=== PATIENT | female | born 1940 | race Caucasian/White ===

== ENCOUNTER 2021-03-08 09:19 | Emergency (ER) | payer MEDICARE, SELFPAY ==
[2021-03-08] VITALS (9 sets, daily range): BP systolic 151–158; BP diastolic 83–97; PULSE 78–98; RESP 14–23; TEMP 36.1–36.3; O2SAT 84–96; BMI 16.0
--- NOTE | 2021-03-08 09:31 | NURSING ---
NO OLD EKGS
--- NOTE | 2021-03-08 10:00 | EKG12_ITS ---
Test Reason : SOB Blood Pressure : / mmHG Vent. Rate : 087 BPM Atrial Rate : 087 BPM P-R Int : 148 ms QRS Dur : 076 ms QT Int : 352 ms P-R-T Axes : 083 063 068 degrees QTc Int : 423 ms Normal sinus rhythm Normal ECG Confirmed by MADDISON SALAS, ARTUR ([id number]), copy editor BECKY BROWNE ([id number]) on 03/09/2021 1:16:49 PM Referred By: CATARINA Confirmed By:ARTUR WASHBURN MD
--- NOTE | 2021-03-08 10:00 | RAD_ITS ---
STUDY: X-RAY CHEST REASON FOR EXAM: Female, 80 years old. Cough TECHNIQUE: Single AP portable view of the chest. COMPARISON: None. FINDINGS: EKG electrodes are seen. There is hyperinflation of the lungs consistent with chronic obstructive lung disease (COPD). Patchy bibasilar infiltrates worse at the left lung base. Blunting of both costophrenic angles. Normal size heart. Normal mediastinum and rito. Normal visualized pulmonary arteries. There is atherosclerotic calcification of the aortic arch with tortuosity. There are diffuse degenerative changes of the visualized thoracic spine. Normal visualized ribs, clavicles, and shoulders. There is no demonstrated abnormality of the visualized soft tissue structures of the upper abdomen. RAD/Chest 1 View (Portable) IMPRESSION: Patchy bibasilar infiltrates more prominent at the left lung base. Electronically Signed: Amarjit Ken MD at 11:11 EST , Service support ,
--- NOTE | 2021-03-08 10:10 | ED.VIS.DYS ---
HPI History of Present Illness Chief Complaint: Shortness of Breath Informant: patient Narrative Narrative: Patient is an 80-year-old female with history of hypertension, COPD/emphysema and hyperlipidemia as well as recent COVID-19 infection. She is presenting with continued cough and shortness of breath. She states she is just tired of being sick. She does not wear home oxygen. Patient was 84% upon arrival on room air. Patient was diagnosed with COVID-19 on February 13. She states she had a cough for up to 2 weeks beforehand so she is not sure when she exactly came down with symptoms. She has appointment to follow-up with pulmonology on 03/31 and see a new primary care doctor on Saturday. She continues to have a productive cough of yellow and white sputum. She denies any recent fevers. She uses her nebulizer once a day and is also compliant with her Spiriva and Symbicort. She notes has had increased exercise intolerance and dyspnea on exertion when around the house. She cannot tell me for how long this has been going on exactly. Patient's spouse did pass away in the hospital 8 days ago. [facility] Medical History COPD (chronic obstructive pulmonary disease) HLD (hyperlipidemia) HTN (hypertension) Home Medications albuterol sulfate 1 inh INHALATION Q6H 03/08/21 [History Last Taken Unknown] albuterol sulfate 2.5 mg INHALATION Q6H PRN 03/08/21 [History Last Taken Unknown] budesonide-formoterol [Symbicort] 2 puff INHALATION BID 03/08/21 [History Last Taken Unknown] dexamethasone [Decadron] 6 mg PO DAILY #6 tab 03/08/21 [Rx Last Taken Unknown] doxycycline hyclate 100 mg PO BID #13 tab 03/08/21 [Rx Last Taken Unknown] hydrochlorothiazide 12.5 mg PO DAILY 03/08/21 [History Last Taken Unknown] losartan 25 mg PO DAILY 03/08/21 [History Last Taken Unknown] [id number] fumarate [Multi Vitamin] 1 PO DAILY 03/08/21 [History Last Taken Unknown] simvastatin 20 mg PO DAILY 03/08/21 [History Last Taken Unknown] tiotropium bromide [Spiriva with HandiHaler] 18 mcg INHALATION DAILY 03/08/21 [History Last Taken Unknown] Allergy/AdvReac Type Severity Reaction Status Date / Time No Known Allergies Allergy Verified 03/08/21 09:21 Social History Smoking Status: Former smoker ROS ROS ED Constitutional Constitutional ED: Denies chills or fever(s) Eyes Eyes: Denies blurry vision ENT ENT ED: Denies ear pain, rhinorrhea or sore throat Cardiovascular Cardiovascular: Denies chest pain Respiratory/Chest Respiratory/Chest: Reports cough, dyspnea, dyspnea on exertion and sputum Gastrointestinal Gastrointestinal: Denies abdominal pain, diarrhea, nausea or vomiting Genitourinary Genitourinary ED: Denies dysuria Musculoskeletal Musculoskeletal: Denies arthralgias or myalgias Integumentary Denies rash Neurologic Neurologic: Denies headache(s), paresthesias or weakness Psychiatric Psychiatric: Denies depression EXAM Physical Exam Const Vital Signs: 03/08/21 09:24 03/08/21 09:27 03/08/21 09:45 Temperature 97.3 F L 97.3 F L Temperature Source Temporal Temporal Pulse Rate 98 98 Respiratory Rate 16 18 Respiratory Effort Respiratory Depth Respiratory Pattern Blood Pressure 158/89 H 158/89 H Blood Pressure Mean 112 112 Pulse Ox 84 95 96 Oxygen Delivery Method Room Air Nasal Cannula Nasal Cannula Oxygen Flow Rate (L/min) 2 2 03/08/21 09:51 03/08/21 10:45 03/08/21 12:17 Temperature 96.9 F L Temperature Source Temporal Pulse Rate 80 78 Respiratory Rate 14 23 H Respiratory Effort Short of Breath Respiratory Depth Normal Respiratory Pattern Normal Blood Pressure 151/83 H Blood Pressure Mean 105 Pulse Ox 93 95 Oxygen Delivery Method Room Air Room Air Nasal Cannula Oxygen Flow Rate (L/min) 2 03/08/21 13:46 Temperature Temperature Source Pulse Rate 78 Respiratory Rate 16 Respiratory Effort Respiratory Depth Respiratory Pattern Blood Pressure 156/97 H Blood Pressure Mean Pulse Ox 95 Oxygen Delivery Method Oxygen Flow Rate (L/min) Positive well nourished and well developed General Appearance ED: well developed and other thin HEENT Reports dry mucous membranes atraumatic; Negative for tenderness Mouth ED: Yes dry mucous membranes Mouth: dry mucous membranes Eyes PERRL and EOMs intact bilaterally Neck no lymphadenopathy and supple Resp normal respiratory effort Resp Narrative: Mildly diminished, breath sounds heard throughout with no wheezing appreciated Auscultation: diminished lung sounds Cardio regular rate, regular rhythm and no murmurs GI non-tender and non-distended Auscultation: normoactive bowel sounds Palpation: soft Back/Spine normal to inspection Extremity normal to inspection General Extremety ED: Negative for edema or tenderness General Extremity: Negative for edema Neuro oriented x3 Sensorium / Orientation: alert Motor Exam: Negative for general weakness Psych mental status grossly normal Skin no wounds Lesions: no lesions Rashes: no rashes MDM MDM MDM Narrative Medical decision making narrative: Patient is evaluated for persistent shortness of breath and cough after COVID-19 infection. Patient was 85% upon arrival. She is not hypoxic at rest however with ambulation she is hypoxic requiring 2 L of oxygen. Differential includes sequelae of COVID-19 infection, COPD exacerbation, pneumonia and PE. But overall patient is well-appearing and in no respiratory distress. Cardiac work-up is normal. She does have an elevated D-dimer. CTA of the chest does not show any PE but does show emphysematous changes as well as bibasilar infiltrate. She does not have a leukocytosis, fever and only a mildly elevated procalcitonin. I suspect this is COVID pneumonitis changes and not acute infection. Patient will be covered with doxycycline regardless. She does not want to be admitted to the hospital and will be discharged with a course of Decadron (states that prednisone affects her glaucoma) and home oxygen. I discussed the case with her PCP who she has appointment with on Saturday and he will follow-up with her. Will fax over her note from today. Patient is offered admission but declines. Patient counseled on return precautions. States she does have a home pulse oximeter. Instructed to return especially if her home pulse ox is below 90 despite home O2 if she has worsening symptoms. Patient and son agreeable with this plan of care. Lab Data Attestation: I reviewed the patient's lab results. Labs: Laboratory Results - last 24 hr 03/08/21 03/08/21 03/08/21 10:00 10:00 10:00 WBC 9.6 RBC 4.31 Hgb 13.0 Hct 39.8 MCV 92.3 MCH 30.2 MCHC 32.7 RDW Std Deviation 45.1 H RDW Coeff of Phillip 13.2 Plt Count 415 MPV 9.0 Immature Gran % (Auto) 0.700 Neut % (Auto) 77.0 H Lymph % (Auto) 10.8 L [place] % (Auto) 8.6 Eos % (Auto) 2.0 Baso % (Auto) 0.9 Absolute Neuts (auto) 7.4 Absolute Lymphs (auto) 1.04 Nucleated RBC % 0 D-Dimer Quant (PE/DVT) 1.95 H* Sodium 133 L Potassium 4.2 Chloride 99 Carbon Dioxide 28.0 Anion Gap 6 BUN 18 Creatinine 0.69 Estim Creat Clear Calc 29.11 Est GFR (MDRD) Af Amer 106 Est GFR (MDRD) Non-Af 87 BUN/Creatinine Ratio 26.2 H Glucose 95 Lactic Acid Calcium 9.6 Total Bilirubin 0.40 AST 21 ALT 20 Alkaline Phosphatase 84 Troponin I High Sens 4 Total Protein 7.3 Albumin 2.5 L Globulin 4.8 H Albumin/Globulin Ratio 0.5 L Procalcitonin 03/08/21 03/08/21 10:00 10:00 WBC RBC Hgb Hct MCV MCH MCHC RDW Std Deviation RDW Coeff of Phillip Plt Count MPV Immature Gran % (Auto) Neut % (Auto) Lymph % (Auto) [place] % (Auto) Eos % (Auto) Baso % (Auto) Absolute Neuts (auto) Absolute Lymphs (auto) Nucleated RBC % D-Dimer Quant (PE/DVT) Sodium Potassium Chloride Carbon Dioxide Anion Gap BUN Creatinine Estim Creat Clear Calc Est GFR (MDRD) Af Amer Est GFR (MDRD) Non-Af BUN/Creatinine Ratio Glucose Lactic Acid 0.9 Calcium Total Bilirubin AST ALT Alkaline Phosphatase Troponin I High Sens Total Protein Albumin Globulin Albumin/Globulin Ratio Procalcitonin 0.18 H Radiography Chest X-Ray - ED: 1 View, Read by ED Physician, Read by Radiologist, Right Infiltrate, Left Infiltrate and - (Hyperinflated) Diagnostic Testing: Clinical Impression(s) from Imaging Studies Chest X-Ray 03/08/21 10:00 IMPRESSION: Patchy bibasilar infiltrates more prominent at the left lung base. Electronically Signed: Amarjit Ken MD at 11:11 EST , Service support , Chest CTA 03/08/21 10:54 IMPRESSION: No evidence of pulmonary embolism. Marked degree of bronchiectasis and emphysematous changes with a mucous filled bronchi in both lower lobes. Bibasilar pulmonary infiltrates. Electronically Signed: Amarjit Ken MD at 11:35 EST , Service support , Rhythm Strip Rhythm Strip: Sinus Rhythm Rate: 87 Ectopy: None EKG Initial EKG: Attestation: I personally reviewed and interpreted this EKG as follows: Interpretation: Sinus Rhythm Comments: Normal sinus rhythm at a rate of 87 Normal axis Normal intervals Normal ST segments Discharge Plan Triage Chief Complaint: Shortness of Breath ED Provider: Cheryle Tinsley Dx/Rx/DC Orders Clinical Impression: Acute hypoxemic respiratory failure due to COVID-19 Instructions: ED COPD Flare Prescriptions: New dexamethasone [Decadron] 6 mg tablet 6 mg PO DAILY Qty: 6 RF: 0 doxycycline hyclate 100 mg tablet 100 mg PO BID Qty: 13 RF: 0 No Action albuterol sulfate 2.5 mg /3 mL (0.083 %) solution for nebulization 2.5 mg inhalation Q6H PRN (Reason: Shortness Of Breath) RF: 0 simvastatin 20 mg tablet 20 mg PO DAILY RF: 0 losartan 25 mg tablet 25 mg PO DAILY RF: 0 hydrochlorothiazide 12.5 mg capsule 12.5 mg PO DAILY RF: 0 albuterol sulfate 90 mcg/actuation HFA aerosol inhaler 1 inh INHALATION Q6H RF: 0 Spiriva with HandiHaler 18 mcg capsule, w/inhalation device 18 mcg INHALATION DAILY RF: 0 budesonide-formoterol [Symbicort] 160-4.5 mcg/actuation Hfa Aerosol Inhaler 2 puff INHALATION BID RF: 0 Multi Vitamin 9 mg iron/15 mL Liquid 1 PO DAILY RF: 0 Primary Care Provider: Nathan Rdz Referrals: Nathan Rdz MD [Primary Care Provider] - Disposition Disposition: Home, Self Care Discharge Date/Time: 03/08/21 13:47
[2021-03-08 10:20] LABS: Absolute Lymphocyte Count 1.04 X10^3/uL (0.83-4.51); Absolute Neutrophil Count 7.4 X10^3/uL (2.0-7.7); Basophil# 0.09 X10^3/uL; Basophil% 0.9 % (0-1); Eosinophil# 0.19 X10^3/uL; Hematocrit 39.8 % (37-47); Lymphocyte # 1.04 X10^3/ul (0.83-4.51); Lymphocyte % 10.8 % (19-41); Mean Corp Hgb Conc 32.7 g/dL (32-36); Mean Corpuscular Hgb 30.2 pg (27.0-32.0); Mean Corpuscular Volume 92.3 fL (81-99); Monocyte# 0.83 X10^3/uL; Monocyte% 8.6 % (0-10); NRBC Flagged by Analyzer 0 % (0-5); Neutrophil # 7.42 X10^3/uL (2.7-7.7); Platelet Count 415 K/mm3 (150-450); RBC Distribution Width CV 13.2 % (11.6-14.6); RBC Distribution Width SD 45.1 fl (35.1-43.9); Red Blood Count 4.31 M/mm3 (4.2-5.4); White Blood Count 9.6 K/mm3 (4.4-11.0)
[2021-03-08 10:42] LABS: Lactic Acid 0.9 mmol/L (0.4-1.9)
[2021-03-08] MEDS: 0.9% Normal Saline 1,000 ML 125 ML IV (10:44)
[2021-03-08 10:49] LABS: D-Dimer Quantitative (DVT/PE) 1.95 FEU/ug/m (0.27-0.49)
[2021-03-08 10:51] LABS: ALB/GLOB Ratio 0.5 RATIO (0.9-2.4); AST(SGOT) 21 U/L (15-37); Alanine Aminotransfer ALT/SGPT 20 U/L (13-56); Albumin, Serum 2.5 g/dL (3.2-5.0); Alkaline Phosphatase 84 U/L (45-117); Anion Gap 6 (5-15); BUN 18 mg/dL (7-18); BUN/Creat Ratio 26.2 RATIO (10-20); Calcium,Total 9.6 mg/dL (8.5-10.1); Chloride 99 mmol/L (98-107); Creatinine, Serum 0.69 mg/dL (0.55-1.02); EST Glomerular Filtration Rate 87 mL/min (>60); Est Glom Filt Rate - Afr Amer 106 mL/min (>60); Estimated Creatinine Clearance 29.11 ml/min; Globulin 4.8 g/dL (2.2-4.2); Glucose 95 mg/dL (74-106); Potassium 4.2 mmol/L (3.5-5.1); Protein, Total 7.3 g/dL (6.4-8.2); Sodium Level 133 mmol/L (136-145); Troponin-I HS 4 pg/mL (3.0-54.0)
--- NOTE | 2021-03-08 10:54 | CT_ITS ---
STUDY: CTA CHEST REASON FOR EXAM: Female, 80 years old. Hypoxia, elevated dimer RADIATION DOSAGE (If Supplied By Facility): CTDIvol = ( 2.89 ) mGy, DLP = ( 121.75 ) mGycm TECHNIQUE: The examination was performed with the intravenous administration of IV 75mL Isovue-370. Post-processing of the angiographic images was performed, with multiplanar reformation and 3D reconstruction. Individualized dose optimization techniques were used for this CT. COMPARISON: Comparison is made with prior chest radiograph done earlier today. FINDINGS: Normal enhancement of the main pulmonary artery and right and left pulmonary arteries. Normal enhancement of the bilateral peripheral pulmonary arteries. There is no demonstrated pulmonary embolism. There is atherosclerotic calcification of the aortic arch with tortuosity. There is no demonstrated aortic dissection. There are calcifications of the coronary arteries. Normal mediastinum. Normal hilar regions. Normal visualized trachea and bronchi. Hyperinflation. There is evidence of a marked degree of emphysematous changes worse in the upper lobes with a centrilobular changes. There is evidence of a extensive bronchiectasis in both lower lobes with a mucous filled bronchi in both lower lobes. Patchy bibasilar infiltrates slightly worse on the left side. Normal pleura. Normal chest wall structures. There are degenerative changes of thoracic spine. Almost complete collapse of the T12 vertebrae. Normal visualized upper abdomen. CT/CTA Chest W/WO Contrast IMPRESSION: No evidence of pulmonary embolism. Marked degree of bronchiectasis and emphysematous changes with a mucous filled bronchi in both lower lobes. Bibasilar pulmonary infiltrates. Electronically Signed: Amarjit Ken MD at 11:35 EST , Service support ,
[2021-03-08 11:25] LABS: Procalcitonin 0.18 ng/mL (0.00-0.09)
--- NOTE | 2021-03-08 13:27 | CASEMGMT ---
Addendum entered by Darshana Majano 03/08/21 16:12: 1607- Called [employer] and s/w Kathy. Confirmed received faxed order. SHRUTI Montesinos Original Note: ER RNCM Covid Home Oxygen Discharge Planning: This senior grant writer to patient bedside. Confirmed with patient and family at bedside- patient address and phone number correct. Aware to call [employer] upon arriving home to coordinate home concentrator delivery. Number to [employer] provided on portable oxygen tank that was provided to patient from [employer]- tank left at bedside. Patient states that she has a pulse Ox at home and acknowledges to check oxygenation at home. Agrees to RNCM doing a f/u call to check on patient. [employer] in network with patient insurance per insurance website. Faxed order to [employer]. SHRUTI Montesinos
[2021-03-08] MEDS: Doxycycline 100 MG CAPSULE PO (13:37)
[2021-03-08] MEDS: dexAMETHasone 4 MG Tablet 6 MG PO (13:37)
--- NOTE | 2021-03-10 17:32 | CASEMGMT ---
ER SHRUTI Covid Home O2 DC F/U Call: Called patient at Home number listed on Demographics. Patient answered. Introducced self and role. Patient states that she is doing better and her Oxygen on her crooked finger states 93% but her right hand will have a different reading. Educated on Pulse Ox and things to do/monitor for on pulse ox to determine an accurate reading. Acknowledged. Agrees to plan for further F/u call on Saturday by this health science writer if RNCM does not f/u tomorrow. [facility] has a PCP appointment scheduled for 03/14/2021. SHRUTI Montesinos
--- NOTE | 2021-03-13 17:27 | CASEMGMT ---
ER RNCM Covid home O2 DC F/u Call: Called patient at listed number on demographics, patient answered. Introduced self and role. Patient states that she is still doing good and O2 sat 93-95%. Has her PCP appointment tomorrow. Denies any issues, concerns or questions at this time. John Majano, EMILYCM
--- NOTE | 2021-03-15 10:15 | CASEMGMT ---
EMILY COLON ED COVID Home Oxygen follow-up: EMILY COLON placed call to patient's listed telephone number on demographics. Patient states she is feeling pretty good with SpO2 93% on 2 LPM continuous. Patient reports shortness of breath improved. Patient states she has taken all prescribed medications as ordered and is eating and drinking well. Patient states had in-office PCP follow-up appointment that went well and was scheduled to return to office in one month. Patient denies questions or concerns. EMILY English CM
== END 2021-03-08 13:47 | disposition home or self-care (01) ==
PROVIDERS: Emergency Provider Emergency Medicine; PCP Family Medicine; Visit Provider Emergency Medicine
DX: U07.1 COVID-19 (principal); J43.9 Emphysema, unspecified; J96.01 Acute respiratory failure with hypoxia; J12.82 Pneumonia due to coronavirus disease 2019; I10 Essential (primary) hypertension; E78.5 Hyperlipidemia, unspecified; Z79.51 Long term (current) use of inhaled steroids; Z79.899 Other long term (current) drug therapy; Z87.891 Personal history of nicotine dependence
CPT/HCPCS: 71045; 71275; 80053; 83605; 84145; 84484; 85025; 85379; 93005; 96360; 96361; 99285; J7030; Q9967; A4216